=== PATIENT | female | born 1975 | race Hispanic/Latino ===

== ENCOUNTER 2018-02-01 10:01 | Emergency (ER) | payer SELFPAY ==
[~2018-02-01] VITALS: Ht 157.5 cm; Wt 70.3 kg
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
[2018-02-01] MEDS ORDERED: CYCLOBENZAPRINE5 M2 PO (13:27)
[2018-02-01] MEDS ORDERED: IBUPROFEN800 M1 PO (13:27)
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
== END 2018-02-01 15:35 ==
LOC: ERH 10:01
DX: M54.2 Cervicalgia (principal); R51 Headache; V89.2XXA Person injured in unspecified motor-vehicle accident, traffic, initial encounter; Y93.9 Activity, unspecified; Y92.411 Interstate highway as the place of occurrence of the external cause
CPT/HCPCS: 71046; 72050; 81025